=== PATIENT | female | born 1990 | race African-American/Black ===

== ENCOUNTER 2018-03-16 08:08 | Observation (INO) | payer OTHER ==
[2018-03-16] MEDS ORDERED: SODIUM CHLORIDE 1,000 ML IV STA ×2 (09:18→16:29)
[2018-03-16 09:52] LABS: BASO % 0.6 % (0-2.0); EOS % 0.1 % (0-4.5); HEMATOCRIT 37.1 % (32.4-45.2); HEMOGLOBIN 12.2 GM/dL (10.7-15.3); LYMPH % 9.5 % (8-40); MCH 29.6 pg (25.7-33.7); MCHC 32.9 g/dl (32.0-36.0); MEAN CELL VOLUME 90.2 fl (80-96); MEAN PLT VOLUME 8.3 fl (7.5-11.1); MONO % 3.3 % (3.8-10.2); NEUT % 86.5 % (42.8-82.8); PLATELET COUNT 231 K/MM3 (134-434); RBC 4.12 M/mm3 (3.60-5.2); RDW 12.4 % (11.6-15.6); WHITE BLOOD COUNT 14.7 K/mm3 (4.0-10.0)
[2018-03-16 09:55] LABS: HCG,QUALITATIVE URINE Negative
--- NOTE | 2018-03-16 10:08 | PDOC ---
History of Present Illness - General Chief Complaint: Pain Stated Complaint: LOWER ABD PAIN Time Seen by Provider: 03/16/18 08:35 History Source: Patient Exam Limitations: No Limitations - History of Present Illness Initial Comments: 03/16/18 10:10 28-year-old female with no past medical history presents to ED with complaints of worsening right lower abdominal pain for the past 4 days now causing intermittent nausea radiating to her bellybutton and right upper quadrant. Patient states the pain was so bad while sitting on the toilet bowl this morning trying to urinate when she syncopized. As per patient and mother came immediately after she fell and was arousable within seconds. Patient denies chest pain, headache, visual changes, nausea, difficulty breathing, back pain, vaginal discharge or irregular menses. Patient states pain normally occurs this time every month but this month was the worse and lasting more than a few days. Timing/Duration: getting worse Severity: moderate Associated Symptoms: reports: syncope, other (abd pain) Past History - Travel Traveled outside of the country in the last 30 days: No Close contact w/someone who was outside of country & ill: No - Past Medical History Allergies/Adverse Reactions: Allergies Allergy/AdvReac Type Severity Reaction Status Date / Time No Known Allergies Allergy Verified 03/16/18 08:22 Home Medications: Ambulatory Orders NK [No Known Home Medication] 03/16/18 COPD: No - Reproductive History Is Patient Now?: No Cervical CA: No Dysfunctional Uterine Bleeding: No Ectopic : No Endometrial CA: No Polycystic Ovaries: No Therapeutic (s) & number: No Tubal Ligation: No - Suicide/Smoking/Psychosocial Hx Smoking History: Never smoked Have you smoked in the past 12 months: No Information on smoking cessation initiated: No Hx Alcohol Use: No Drug/Substance Use Hx: No Patient Lives Alone: No Lives with/in: parents Review of Systems - Review of Systems Able to Perform ROS?: Yes Constitutional: No: Symptoms Reported HEENTM: No: Symptoms Reported Respiratory: No: Symptoms reported Cardiac (ROS): Yes: Syncope ABD/GI: Yes: Abdominal cramping : No: Symptoms Reported Musculoskeletal: No: Symptoms Reported Integumentary: No: Symptoms Reported Neurological: No: Symptoms reported *Physical Exam - Vital Signs Last Vital Signs Temp Pulse Resp BP Pulse Ox 98.7 F 93 H 20 104/61 100 03/16/18 08:22 03/16/18 08:22 03/16/18 08:22 03/16/18 08:22 03/16/18 08:22 - Physical Exam General Appearance: Yes: Nourished, Appropriately Dressed. No: Apparent Distress HEENT: positive: EOMI, LISANDRO. negative: Pale Conjunctivae Neck: positive: Supple Respiratory/Chest: positive: Lungs Clear, Normal Breath Sounds. negative: Respiratory Distress, Accessory Muscle Use Cardiovascular: positive: Regular Rhythm, Regular Rate. negative: Murmur Gastrointestinal/Abdominal: positive: Normal Bowel Sounds, Soft, Tenderness (rt suprapubic and right lower quadrant tenderness). negative: Guarding, Rebound, Mass Musculoskeletal: negative: CVA Tenderness Extremity: positive: Normal Capillary Refill, Other (small slightly erythematous raised abrasion to right forehead) Integumentary: positive: Normal Color, Warm, Moist Neurologic: positive: Normal Mood/Affect, Motor Strength 09/04 ED Treatment Course - LABORATORY CBC & Chemistry Diagram: 03/16/18 14:15 03/16/18 09:40 - ADDITIONAL ORDERS Additional order review: Laboratory Results 03/16/18 09:40 Urine HCG, Qual Negative Medical Decision Making - Medical Decision Making 03/16/18 10:09 CC: lower abd pain x 4 days with 2 episodes of syncope with pain exacerbations this am Exam: right suprapubic and rlq tenderness Plan: labs, urine, and imaging once labs are resulted 03/16/18 10:35 Laboratory Tests 03/16/18 03/16/18 03/16/18 09:40 09:40 09:40 WBC 14.7 H Hgb 12.2 Hct 37.1 Absolute Neuts (auto) 12.7 H Neutrophils % 86.5 H Total Bilirubin 0.6 AST 15 ALT 25 Lipase 111 Urine Glucose (UA) Negative Urine HCG, Qual Negative pelvis ct w/ contrast ordered 03/16/18 12:23 CT of the abdomen shows moderately insensitive fluid in the abdomen and pelvis with an abdominal right adnexal cyst. The fluid is somewhat hyperdense possibly representing bloody fluid. Findings are thought most likely to be related to the cyst rupture. Appendix possibly but not definitively seen. If this structure questioned as to represent the appendix is unremarkable. Small hiatal hernia, umbilical hernia with fat. 03/16/18 12:54 -transvaginal ultrasound ordered 03/16/18 16:20 Ultrasound shows a right ovary measuring 4.7 4.1 cm of multiple small simple small cyst/follicles. Hemorrhagic cyst measuring 2.8 cm could not be excluded. Normal vascular flow, arterial and venous. There is no free fluid in the cul-de- sac. 03/16/18 16:23 Laboratory Tests 03/16/18 03/16/18 09:40 14:15 Hgb 12.2 10.1 L Hct 37.1 30.3 L D Case discussed with Dr. Mittal and recommending observation, repeat H&H and will consult in a.m. Case discussed with Dr. campos who accepted to [facility]. *DC/Admit/Observation/Transfer Diagnosis at time of Disposition: Hemorrhagic cyst of right ovary, Decreased hemoglobin, Syncope - Discharge Dispostion Decision to Admit order: Yes - Referrals - Patient Instructions - Post Discharge Activity
[2018-03-16 10:10] LABS: URINE APPEARANCE CLEAR; URINE BILIRUBIN NEGATIVE (<2.0 mg/dL); URINE COLOR LTYELLOW; URINE GLUCOSE (UA) NEGATIVE (NEGATIVE); URINE KETONE 1+ (NEGATIVE); URINE LEUK ESTERASE NEGATIVE (NEGATIVE); URINE NITRITE NEGATIVE (NEGATIVE); URINE PROTEIN NEGATIVE (NEGATIVE); URINE UROBILINOGEN NEGATIVE mg/dL (0.2-1.0)
[2018-03-16 10:15] LABS: ALBUMIN 4.2 g/dl (3.4-5.0); ALK PHOS 65 U/L (45-117); ANION GAP 9 MMOL/L (8-16); BILIRUBIN,TOTAL 0.6 mg/dL (0.2-1); BLOOD UREA NITROGEN 13 mg/dL (7-18); CALCIUM 8.8 mg/dL (8.5-10.1); CHLORIDE 104 mmol/L (98-107); CO2 24 mmol/L (21-32); CREATININE 0.7 mg/dL (0.55-1.3); GLUCOSE,RANDOM 99 mg/dL (74-106); LIPASE 111 U/L (73-393); POTASSIUM 4.2 mmol/L (3.5-5.1); SGOT/AST 15 U/L (15-37); SGPT/ALT 25 U/L (13-61); SODIUM 137 mmol/L (136-145); TOT PROT 7.8 g/dl (6.4-8.2)
[2018-03-16 14:36] LABS: HEMATOCRIT 30.3 % (32.4-45.2); HEMOGLOBIN 10.1 GM/dL (10.7-15.3); MCH 29.8 pg (25.7-33.7); MCHC 33.3 g/dl (32.0-36.0); MEAN CELL VOLUME 89.5 fl (80-96); MEAN PLT VOLUME 7.9 fl (7.5-11.1); PLATELET COUNT 179 K/MM3 (134-434); RBC 3.39 M/mm3 (3.60-5.2); RDW 12.7 % (11.6-15.6)
--- NOTE | 2018-03-16 19:36 | HP ---
Admitting History and Physical - Primary Care Physician PCP: Mickie Jorgensen - Admission History of Present Illness: 28-year-old female with no past medical history presents to ED with complaints of worsening right lower abdominal pain for the past 4 days now causing intermittent nausea radiating to her bellybutton and right upper quadrant. Patient states the pain was so bad while sitting on the toilet bowl this morning trying to urinate when she syncopized. As per patient and mother came immediately after she fell and was arousable within seconds. Patient denies chest pain, headache, visual changes, nausea, difficulty breathing, back pain, vaginal discharge or irregular menses. Patient states pain normally occurs this time every month but this month was the worse and lasting more than a few days. - Past Medical History ...: No - Smoking History Smoking history: Never smoked Have you smoked in the past 12 months: No - Alcohol/Substance Use Hx Alcohol Use: No Home Medications - Allergies Allergies/Adverse Reactions: Allergies Allergy/AdvReac Type Severity Reaction Status Date / Time No Known Allergies Allergy Verified 03/16/18 08:22 - Home Medications Home Medications: Ambulatory Orders NK [No Known Home Medication] 03/16/18 Physical Examination Vital Signs: Vital Signs Temperature 98.2 F 03/16/18 16:07 Pulse Rate 78 03/16/18 18:29 Respiratory Rate 17 03/16/18 18:29 Blood Pressure 103/65 03/16/18 18:29 O2 Sat by Pulse Oximetry (%) 100 03/16/18 16:08 Constitutional: Yes: No Distress HENT: Yes: Atraumatic Neck: Yes: Supple Cardiovascular: Yes: Regular Rate and Rhythm Respiratory: Yes: CTA Bilaterally Gastrointestinal: Yes: Normal Bowel Sounds, Tenderness (mild R lq) Extremities: Yes: WNL Edema: No Neurological: Yes: Alert, Oriented Labs: CBC, BMP 03/16/18 14:15 03/16/18 09:40 Problem List - Problems (1) Decreased hemoglobin Assessment/Plan: 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8 Total Bilirubin 0.6 AST 15 ALT 25 Alkaline Phosphatase 65 Total Protein 7.8 Albumin 4.2 Lipase 111 Urine Color Ltyellow Urine Appearance Clear Urine pH 6.0 Ur Specific [place] 1.016 Urine Protein Negative Urine Glucose (UA) Negative Urine Ketones 1+ H Urine Blood Negative Urine Nitrite Negative Urine Bilirubin Negative Urine Urobilinogen Negative Ur Leukocyte Esterase Negative Urine HCG, Qual Negative 03/16/18 14:15 WBC 12.0 H RBC 3.39 L Hgb 10.1 L Hct 30.3 L D MCV 89.5 MCH 29.8 MCHC 33.3 RDW 12.7 Plt Count 179 D MPV 7.9 Absolute Neuts (auto) Neutrophils % Lymphocytes % Monocytes % Eosinophils % Basophils % Nucleated RBC % Sodium Potassium Chloride Carbon Dioxide Anion Gap BUN Creatinine Creat Clearance w eGFR Random Glucose Calcium Total Bilirubin AST ALT Alkaline Phosphatase Total Protein Albumin Lipase Urine Color Urine Appearance Urine pH Ur Specific [place] Urine Protein Urine Glucose (UA) Urine Ketones Urine Blood Urine Nitrite Urine Bilirubin Urine Urobilinogen Ur Leukocyte Esterase Urine HCG, Qual
[2018-03-16] MEDS ORDERED: ACETAMINOPHEN 325 MG TABLET (FP) PO PRN (19:39)
[2018-03-16 20:43] VITALS: BMI 25.8
[2018-03-16 22:07] LABS: HEMATOCRIT 29.7 % (32.4-45.2); HEMOGLOBIN 10.3 GM/dL (10.7-15.3); MCH 31.2 pg (25.7-33.7); MCHC 34.5 g/dl (32.0-36.0); MEAN CELL VOLUME 90.5 fl (80-96); MEAN PLT VOLUME 8.7 fl (7.5-11.1); PLATELET COUNT 194 K/MM3 (134-434); RBC 3.29 M/mm3 (3.60-5.2); RDW 12.7 % (11.6-15.6); WHITE BLOOD COUNT 10.1 K/mm3 (4.0-10.0)
[2018-03-17 07:16] LABS: BASO % 0.3 % (0-2.0); EOS % 3.2 % (0-4.5); HEMATOCRIT 29.5 % (32.4-45.2); LYMPH % 28.9 % (8-40); MCH 30.4 pg (25.7-33.7); MCHC 33.8 g/dl (32.0-36.0); MEAN PLT VOLUME 8.6 fl (7.5-11.1); MONO % 5.5 % (3.8-10.2); NEUT % 62.1 % (42.8-82.8); PLATELET COUNT 168 K/MM3 (134-434); RBC 3.28 M/mm3 (3.60-5.2); RDW 12.6 % (11.6-15.6); WHITE BLOOD COUNT 6.6 K/mm3 (4.0-10.0)
--- NOTE | 2018-03-17 09:42 | PN ---
Progress Note (short form) - Note Progress Note: Fruit Culler. consultation. Pt was seen today in consultation, note dicatated. Instructions given, pt discharged.
--- NOTE | 2018-03-17 10:52 | CONS ---
DATE OF CONSULTATION: 03/17/2018 REQUESTING PHYSICIAN: Consultation requested by Dr. Mickie Jorgensen. 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 Patient was diagnosed with right ovarian hemorrhagic cyst, drop in hemoglobin and hematocrit, right lower quadrant pain. Patient had right lower quadrant pain and a couple of presyncopal episodes. She was seen in the emergency room and evaluated. From the emergency room after discussing it with emergency room doctor, patient was admitted to the floor for observation. Her hematocrit dropped about 8-10 points. While in the hospital, she has been asymptomatic, slept the night, and complains of only minimal discomfort. Her white count is lower today, 6.7, and her hemoglobin is 10.0 and hematocrit is 29.5, which is very stable compared to last night values. Patient is sexually active, but her test was negative. Her control is avoiding sperm in the vagina. Last menstrual period February 27, 2018. Patient is not on the pill, and she tolerates them poorly. Considering within the year. She is para 1 with 1 normal vaginal delivery a year ago. History of HPV and group B strep during the . She is otherwise doing quite well. SOCIAL HISTORY: No smoking. Patient is a social services director. REVIEW OF SYSTEMS: Is unremarkable. PHYSICAL EXAMINATION: General: Patient is a very pleasant, well-developed, well-nourished, light-skinned black/ female, well oriented, bright, in no acute distress. Head and Neck: Within normal limits. Abdomen: Soft, flat, minimally tender only under deep palpation. No rebound, no guarding. Bowel sounds present. CVA: Bilaterally negative. Pelvic: Examination done. Vulva, vagina, BUS, cervix multiparous. No blood, no purulent discharge in the vagina. Cervix closed. Uterus normal sized, anteverted. No tenderness on motion. Adnexa without obvious masses or tenderness. Minimally tender in the right side. Rectovaginal: Examination deferred. IMPRESSION: 1. Right lower quadrant pelvic pain; suspecting Mittelschmerz. 2. Presyncopal episode. 3. Anemia, most likely iron deficiency, unknown origin. PLAN: Patient is stable, essentially pain-free. Reviewed her transvaginal sonogram and CAT scan from last night, and they were negative. No appendicitis. Right ovarian cyst is 2.1 cm, which is most likely corpus luteum type ovulatory structure. Patient may be discharged. Instructions given. Follow up in about 2 or 3 weeks. Patient may need annual examination with followup Pap smear, HPV testing. All fully discussed with the patient, who understands and will follow. Patient knows to call me any time she has any questions or if her problems return. MD MARCUS ORTEGA/[id number]
--- NOTE | 2018-03-17 11:48 | EKG ---
Test Reason : Blood Pressure : / mmHG Vent. Rate : 077 BPM Atrial Rate : 077 BPM P-R Int : 162 ms QRS Dur : 080 ms QT Int : 368 ms P-R-T Axes : 009 048 021 degrees QTc Int : 416 ms NORMAL SINUS RHYTHM NORMAL ECG NO PREVIOUS ECGS AVAILABLE Confirmed by SHIRLEY BRIZUELA MD ([id number]) on 03/17/2018 11:48:20 AM Referred By: Confirmed By:SHIRLEY BRIZUELA MD
--- NOTE | 2018-03-17 13:33 | DS ---
Physical Examination Vital Signs: Vital Signs Temperature 98.3 F 03/17/18 10:00 Pulse Rate 77 03/17/18 10:00 Respiratory Rate 18 03/17/18 12:00 Blood Pressure 105/65 03/17/18 10:00 O2 Sat by Pulse Oximetry (%) 100 03/17/18 12:00 Constitutional: Yes: No Distress HENT: Yes: Atraumatic Neck: Yes: Supple Cardiovascular: Yes: Regular Rate and Rhythm Respiratory: Yes: CTA Bilaterally Gastrointestinal: Yes: Normal Bowel Sounds Extremities: Yes: WNL Neurological: Yes: Alert, Oriented Labs: CBC, BMP 03/17/18 06:15 03/16/18 09:40 Discharge Summary Reason For Visit: DECREASED HEMOGLOBIN Current Active Problems Decreased hemoglobin (Acute) Hemorrhagic cyst of right ovary (Acute) Syncope (Acute) - Instructions Diet, Activity, Other Instructions: see home paraprofessional for follow up in 2 weeks as per their instructions Disposition: HOME - Home Medications Comprehensive Discharge Medication List: Ambulatory Orders NK [No Known Home Medication] 03/16/18 cleared by home paraprofessional to go home and folow up with home paraprofessional 1-2 weeks
[2018-03-17 13:51] VITALS: BP 100/65; PULSE 85; TEMP 98.2
== END 2018-03-17 13:54 | disposition home or self-care (01) ==
LOC: JER 08:08 → JERBED 16:28 → J7W 18:30
PROVIDERS: ADMIT Internal Medicine; ATTEND Internal Medicine
PROC: 3E0337Z Introduction of Electrolytic and Water Balance Substance into Peripheral Vein, Percutaneous Approach (ICD-10-PCS; principal; 2018-03-16)
DX: D58.2 Other hemoglobinopathies (principal); R55 Syncope and collapse; N83.291 Other ovarian cyst, right side; D64.9 Anemia, unspecified
CPT/HCPCS: 36415; 74177-TC; 76830-TC; 80053; 81003; 83690; 84703; 85025; 85027; 87086; 93005; 93010; 99284-25; G0378; J7030